=== PATIENT | female | born 1935 | race Caucasian/White ===

== ENCOUNTER 2017-12-17 09:16 | Outpatient (CLI) | payer MEDICARE, OTHER ==
[2017-12-17 10:19] LABS: Anion Gap 15 mmol/L (10-20); BUN (Urea Nitrogen) 11 mg/dL (9.8-20.1); Calc. Creatinine Clearance 0 mL/min (70-130); Calcium 9.8 mg/dL (7.8-10.44); Carbon Dioxide 22 mmol/L (23-31); Cardiac Risk 2.3 (Less than 4.5); Chloride 109 mmol/L (98-107); Cholesterol 158 mg/dl (< 200 Desired); Estimated GFR-MDRD 76; Glucose 96 mg/dL (83-110); HDL Cholesterol 69 mg/dL (>60 Neg Risk); LDL Cholesterol, Calculated 74 mg/dL; Potassium 3.3 mmol/L (3.5-5.1); Sodium 143 mmol/L (136-145); Triglycerides 73 mg/dL (Less than 150)
[2017-12-17 10:31] LABS: Hemoglobin 13.5 g/dL (12.0-16.0); Lymphocytes 15 % (21-51); MDiff Complete? YES; Mean Corpuscular HGB CONC 33.4 g/dL (32.0-36.0); Mean Corpuscular Volume 101.8 fL (78.0-98.0); Mean Platelet Volume 5.8 fL (7.4-10.4); Monocytes 10 % (0-10); Neutrophil 54 % (42-75); PLT Morphology Comment Appears Adequate; Platelet Count 282 thou/uL (130-400); RBC Distribution Width 13.8 % (11.5-14.5); RBC Morphology Normal; Reactive Lymphocytes 21 % (0-10); Red Blood Cell (RBC) Count 3.95 mill/uL (4.20-5.40); White Blood Cell (WBC) Count 6.8 thou/uL (4.8-10.8)
== END 2017-12-17 09:17 | disposition home or self-care (01) ==
LOC: MADLAB 09:16
PROVIDERS: ATTEND Nurse Practitioner Family
DX: I48.2 Chronic atrial fibrillation (principal); I10 Essential (primary) hypertension
CPT/HCPCS: 36415; 80048; 80061; 85025

== ENCOUNTER 2018-01-18 14:34 | Emergency (ER) | payer MEDICARE, OTHER ==
--- NOTE | 2018-01-18 15:29 | RAD ---
RIGHT FOOT 3 VIEWS: HISTORY: Right foot injury. FINDINGS: Lisfranc joint alignment is anatomic. Plantar arch is maintained. Scattered mild osteophytosis. Mi ld hallux valgus and bunion deformity. On the oblique view, there is some irregularity of the medial malleolus and soft tissue swelling abou t the ankle. Metallic density overlies the lateral soft tissues of the ankle on 1 view. IMPRESSION: 1. Mild degenerative changes. 2. Hallux valgus with bunion deformity. 3. Abnormalities of the ankle are partially visualized and better detailed on dedicated radiograph o f the ankle that is pending. POS: [facility]
--- NOTE | 2018-01-18 15:34 | RAD ---
RIGHT ANKLE 3 VIEWS: HISTORY: Right ankle injury. FINDINGS: Nondisplaced oblique fracture extends through the base of the medial malleolus with overlying soft ti ssue swelling. Talar dome is intact. Slight widening of the medial ankle mortise. There is 0.2 cm posterior displacement of the distal fr agment of an oblique distal fibula fracture at the level of the ankle mortise. Overlying soft tissue swelling with a 0.6 cm oval well-corticated ossification. Fluid distention of the joint capsule indicates hemarthrosis. IMPRESSION: 1. Bimalleolar fracture right ankle with mild lateral subluxation of the talus. 2. Chronic-appearing oval ossification within the lateral ankle soft tissue swelling, possibly relat ed to an old injury. POS: [facility]
[2018-01-18] MEDS ORDERED: Ondansetron ODT 4 MG TAB ONE (15:35)
[2018-01-18] MEDS ORDERED: HYDROcodone/Acetaminophen 10/325 mg Tablet ONE (15:35)
--- NOTE | 2018-01-18 15:35 | RAD ---
RADIOGRAPH RIGHT KNEE 4 VIEWS: 01/18/18 HISTORY: 82-year-old female status post acute traumatic injury to the right knee. FINDINGS: There is diffuse osteopenia. No displaced fracture is identified. Moderate sized osteophytes at media l compartment with little or no joint space narrowing. Small osteophytes at patellofemoral compartmen t. Lateral compartment appears normal. Diffuse soft tissue edema. IMPRESSION: 1. No acute fracture identified. 2. Diffuse osteopenia. 3. Soft tissue edema. 4. 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 POS: [facility]
== END 2018-01-18 16:20 | disposition home or self-care (01) ==
LOC: MADERS 14:34
DX: S82.844A Nondisplaced bimalleolar fracture of right lower leg, initial encounter for closed fracture (principal); I48.91 Unspecified atrial fibrillation; Z79.899 Other long term (current) drug therapy; Z79.01 Long term (current) use of anticoagulants; W18.30XA Fall on same level, unspecified, initial encounter
CPT/HCPCS: 29515; Q0162

== ENCOUNTER 2018-05-02 19:44 | Inpatient (IN) | payer MEDICARE, OTHER ==
[2018-05-02] MEDS ORDERED: Rivaroxaban 10 MG TAB PO SCH (21:30)
[2018-05-03] MEDS: Digoxin 0.25 MG TAB PO SCH (09:07)
--- NOTE | 2018-05-03 15:43 | HP ---
PRIMARY CARE PHYSICIAN: Dr. James in [place]. LINE ASSEMBLER AIRCRAFT: Shay Champagne MD GI: Herson Piña MD INFECTIOUS DISEASE: Bret Shaikh MD. REASON FOR ADMISSION: Transferred to [facility] for skilled rehab post hospitalization. HISTORY OF PRESENT ILLNESS: Ms. Vang is an 83-year-old female with multiple chronic medical conditions, recently admitted to [facility] for acute onset of cough and shortness of breath. Per report, the patient was reported to be hypoxic from her primary care physician's clinic. She was then sent to the emergency room for further evaluation. On further examination, the patient was diagnosed with community-acquired pneumonia. The patient had a CT angiogram of the chest showing no evidence of pulmonary embolism. There was some diffuse pericardial fat completely surrounding the heart and some nonspecific parenchymal changes and multiple adrenal nodules. She also had an echocardiogram during this hospitalization with ejection fraction of 65%, probable diastolic dysfunction. The patient was treated on broad-spectrum IV antibiotics with marked improvement of the respiratory symptoms. She also received bronchodilators. During her admission, the patient also reported a significant abdominal pain and was noted to have an ileus versus a partial small -bowel obstruction. Her CT of the abdomen and pelvis showed distended loops of bowel in the jejunum and colon and bilateral adrenal nodules. The patient was made n.p.o.and placed on bowel rest. Abdominal symptoms resolved over the course of the next couple of days. During this hospitalization, railroad engineer was consulted with regard to her permanent atrial fibrillation and her medications were slightly adjusted. ID was likewise consulted during this hospitalization secondary to persistent leukocytosis. 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 Dr. Shaikh recommended to get a 24-hour urine for free cortisol, which can be done in [facility]. We will order this in [facility] in meantime, and will follow up and we will coordinate this with Dr. Shaikh. When admitted, the patient reports today that she feels much better now. There is no significant recurrence of shortness of breath or dyspnea on exertion. She denies recurrence of cough nor sputum production. She remains on oxygen and continuous oxygen as her O2 saturation has not stabilized at room air at this point yet. The patient reports that she had never had oxygen at home. The patient also reports that she still feels very generally weak and is agreeable that she will have her therapy in [facility] before going back to the home environment. No other issues reported at this time. PAST MEDICAL HISTORY: Diverticulosis, atrial fibrillation, chronic partial small bowel obstruction, breast cancer of the left side. PAST SURGICAL HISTORY: 1. Hemicolectomy with reanastomosis in 2009. 2. Radical mastectomy on the left. 3. Cholecystectomy. 4. Appendectomy. 5. Hysterectomy. 6. Splenectomy. 7. Colonoscopy. ALLERGIES: NONE. MEDICATIONS: 1. Xarelto 20 mg p.o. daily. 2. Cardizem 120 mg p.o. daily. 3. Losartan 50 mg p.o. daily. FAMILY HISTORY: Mother of car accident at age of 75 and father had a CVA and passed when he was 62. SOCIAL HISTORY: She used to smoke, but quit long time ago. She does not drink nor use illicit drug use. REVIEW OF SYSTEMS: GENERAL: Denies fever, chills. Reports fatigue and general weakness. HEENT: Denies headache, acute visual changes or hearing changes. PULMONARY: As per HPI. CARDIAC: Denies chest pain, palpitation, dyspnea on exertion, pain with breathing, orthopnea. GASTROINTESTINAL: No nausea, vomiting, abdominal pain, constipation, or rectal bleeding. Reports chronic diarrhea, GENITOURINARY: No dysuria, hematuria, frequency or urgency or incontinence. MUSCULOSKELETAL: Denies arthralgia, joint effusion or stiffness or myalgia. NEURO: No focal numbness, focal weakness. PSYCH: Denies anxiety, depression, hallucinations. LABORATORY DATA: Most recent lab/tests, white count of 9.3, hemoglobin 13.6, hematocrit 41.8, and platelets 333. Chemistry showed 138 sodium, potassium 3.4 , CO2 18, BUN 12, creatinine 0.81, glucose 151, lactic acid 3.2, troponin 0.092 , albumin 3.3, and lipase 67. Labs prior to discharge on 05/02/2018, WBC 26.5, hemoglobin 8.7, hematocrit 26.8 , platelets 335, neutrophils 85, bands 4. Chemistry, sodium 139, potassium 3.4 (3.1on 04/28/2018), BUN 11, creatinine 0.58, estimated GFR greater than 90, glucose 89, magnesium 1.6, phosphorus 2.4, calcium 8.4. Digoxin level 1.35 on 04/30/2018. PHYSICAL EXAMINATION: VITAL SIGNS: Blood pressure 111/54, temperature 97.6, pulse 83, respiration 18 , O2 sats 91% on 2 L per nasal cannula. Weight 153 pounds and 5 ounces, height 5 feet 7 inches. GENERAL: The patient is awake, alert, oriented x3,generally weak looking , frail elderly; comfortable on exam, not in distress. No family present at bedside. HEENT: Normocephalic, atraumatic. PERRL. Intact EOM. Anicteric sclerae. Oral mucosa is moist. NECK: Supple. No LAD. No JVD. CHEST: Normal excursion. Nonlabored breathing. LUNGS:Clear to auscultation bilaterally. No rales. No crackles. No rhonchi. \CARDIAC: rate controlled, irregular, Normal S1 and S2. GASTROINTESTINAL: Soft, nondistended. Normoactive bowel sounds. Nontender. No rebound. No guarding. Negative CVA tenderness bilaterally. EXTREMITIES: No edema. No cyanosis. PSYCH: Calm, pleasant, appropriate demeanor and affect. NEUROLOGIC: Nonfocal. Gait unsteady.Wears RLE boot ASSESSMENT AND PLAN: 1. Deconditioning/generalized weakness. 2. Community-acquired pneumonia, treated. 3. Ileus, resolved. 4. Chronic atrial fibrillation.On Xarelto. Rate controlled. 5. Acute respiratory failure with hypoxemia secondary to deconditioning/ generalized weakness, oxygen requiring. 6. 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 Due for 24-hour urine, free cortisol. 7. Hypertension. 8. Long-term use of anticoagulant. The patient is admitted to [facility] for purposes of skilled rehab. We will refer to PT and OT. We will continue current medications as modified per list. We will order 24-hour urine for free cortisol. We will try to wean off the patient from the oxygen prior to discharge. VTE PROPHYLAXIS: The patient is already on anticoagulant. Further recommendations depending on the test results. ESTIMATED LENGTH OF STAY: 2 to 3 weeks. CODE STATUS: The patient reports DO NOT RESUSCITATE Job ID: [id number] [facility]
[2018-05-03] MEDS: Rivaroxaban 10 MG TAB PO SCH ×5 (17:04→17:14)
[2018-05-04] MEDS: Digoxin 0.25 MG TAB PO SCH (09:13)
[2018-05-04] MEDS: Rivaroxaban 10 MG TAB PO SCH (17:39)
[2018-05-04] MEDS ORDERED: Rivaroxaban 10 MG TAB ONE (17:41)
[2018-05-04] MEDS ORDERED: Lantiseptic Ointment 130 GM JAR TOP PRN (19:40)
[2018-05-05] MEDS: Digoxin 0.25 MG TAB PO SCH (09:02)
[2018-05-05] MEDS: Rivaroxaban 10 MG TAB PO SCH (17:27)
[2018-05-06] MEDS: Digoxin 0.25 MG TAB PO SCH (09:04)
[2018-05-06] MEDS: Rivaroxaban 10 MG TAB PO SCH (16:51)
[2018-05-07] MEDS: Digoxin 0.25 MG TAB PO SCH (08:34)
[2018-05-07] MEDS: Rivaroxaban 10 MG TAB PO SCH (17:06)
[2018-05-08] MEDS: Digoxin 0.25 MG TAB PO SCH (08:28)
[2018-05-08] MEDS: Rivaroxaban 10 MG TAB PO SCH (17:16)
[2018-05-09] MEDS: Digoxin 0.25 MG TAB PO SCH (09:27)
[2018-05-09] MEDS: Ondansetron ODT 4 MG TAB PO PRN (13:12)
[2018-05-09] MEDS: Rivaroxaban 10 MG TAB PO SCH (17:18)
[2018-05-10] MEDS: Digoxin 0.25 MG TAB PO SCH (09:00)
[2018-05-10 13:17] LABS: Cortisol,Free Ur 65 ug/L (Undefined); Cortisol,Ur Free 24 Hr 26 ug/24 hr (0-50)
[2018-05-10] MEDS: Rivaroxaban 10 MG TAB PO SCH (17:33)
[2018-05-11] MEDS: Digoxin 0.25 MG TAB PO SCH (08:41)
[2018-05-11] MEDS: Rivaroxaban 10 MG TAB PO SCH (17:22)
[2018-05-11] MEDS: Acetaminophen 325 MG TAB PO PRN (21:16)
[2018-05-12] MEDS: Digoxin 0.25 MG TAB PO SCH (09:07)
[2018-05-12] MEDS: Rivaroxaban 10 MG TAB PO SCH (17:08)
[2018-05-12] MEDS: Acetaminophen 325 MG TAB PO PRN (21:01)
[2018-05-13 05:34] LABS: ALT (SGPT) 15 U/L (8-55); AST (SGOT) 14 U/L (5-34); Albumin 2.7 g/dL (3.4-4.8); Alkaline Phosphatase 70 U/L (40-150); Anion Gap 11 mmol/L (10-20); BUN (Urea Nitrogen) 5 mg/dL (9.8-20.1); Bilirubin, Total 1.2 mg/dL (0.2-1.2); Calc. Creatinine Clearance 90 mL/min (70-130); Calcium 8.9 mg/dL (7.8-10.44); Carbon Dioxide 27 mmol/L (23-31); Chloride 107 mmol/L (98-107); Estimated GFR-MDRD Greater than 90; Globulin 2.6 g/dL (2.4-3.5); Glucose 88 mg/dL (83-110); Potassium 3.5 mmol/L (3.5-5.1); Protein, Total 5.3 g/dL (6.0-8.3); Sodium 141 mmol/L (136-145)
[2018-05-13 05:54] LABS: #Basophils 0.1 thou/uL (0.0-0.2); #Eosinphils 0.3 thou/uL (0.0-0.7); #Lymphocytes 1.8 thou/uL (1.20-3.40); #Monocytes 0.9 thou/uL (0.11-0.59); #Neutrophils 3.5 thou/uL (1.40-6.50); %Basophils 1.1 % (0.0-1.0); %Lymphocytes 27.7 % (21.0-51.0); %Monocytes 13.7 % (0.0-10.0); %Neutrophils 53.5 % (42.0-75.0); Anisocytosis SLIGHT = 6-15 cells (100X) (0-5/hpf); Hemoglobin 9.7 g/dL (12.0-16.0); Hypochromia MODERATE=16-30 cells (100X) (0-5/hpf); MDiff Complete? YES; Macrocytosis MODERATE=16-30 cells (100X) (0-5/hpf); Mean Corpuscular HGB CONC 32.2 g/dL (32.0-36.0); Mean Corpuscular Hemoglobin 35.9 pg (27.0-31.0); Mean Corpuscular Volume 111.4 fL (78.0-98.0); Mean Platelet Volume 6.4 fL (7.4-10.4); Platelet Count 229 thou/uL (130-400); Platelet Morphology Comment Appears Adequate; Poikilocytosis SLIGHT = 6-15 cells (100X) (0-5/hpf); RBC Morphology Abnormaql; White Blood Cell (WBC) Count 6.6 thou/uL (4.8-10.8)
[2018-05-13] MEDS: Digoxin 0.25 MG TAB PO SCH (08:38)
[2018-05-13] MEDS: Rivaroxaban 10 MG TAB PO SCH (17:24)
[2018-05-13] MEDS: Loperamide HCl 2 MG CAP PO SCH (20:40)
[2018-05-14] MEDS: Loperamide HCl 2 MG CAP PO SCH ×2 (08:21→20:32)
[2018-05-14] MEDS: Digoxin 0.25 MG TAB PO SCH (08:21)
[2018-05-14] MEDS: Rivaroxaban 10 MG TAB PO SCH (16:49)
[2018-05-14] MEDS: Ondansetron ODT 4 MG TAB PO PRN (16:55)
[2018-05-14] MEDS: Acetaminophen 325 MG TAB PO PRN (21:23)
[2018-05-15] MEDS: Acetaminophen 325 MG TAB PO PRN ×2 (03:07→21:11)
[2018-05-15] MEDS: Loperamide HCl 2 MG CAP PO SCH ×2 (08:24→21:08)
[2018-05-15] MEDS: Digoxin 0.25 MG TAB PO SCH (08:25)
[2018-05-15] MEDS: Rivaroxaban 10 MG TAB PO SCH (16:33)
[2018-05-16] MEDS: Digoxin 0.25 MG TAB PO SCH (09:02)
[2018-05-16] MEDS: Loperamide HCl 2 MG CAP PO SCH ×2 (09:02→20:13)
[2018-05-16] MEDS: Rivaroxaban 10 MG TAB PO SCH (17:21)
[2018-05-16] MEDS: Acetaminophen 325 MG TAB PO PRN (20:12)
[2018-05-17] MEDS: Acetaminophen 325 MG TAB PO PRN ×2 (02:47→21:20)
[2018-05-17] MEDS: Digoxin 0.25 MG TAB PO SCH (08:33)
[2018-05-17] MEDS: Loperamide HCl 2 MG CAP PO SCH (08:33)
[2018-05-17] MEDS: Ondansetron ODT 4 MG TAB PO PRN (16:45)
[2018-05-17] MEDS: Rivaroxaban 10 MG TAB PO SCH (17:18)
[2018-05-17] MEDS: Loperamide HCl 2 MG CAP PO PRN (21:20)
[2018-05-18] MEDS: Acetaminophen 325 MG TAB PO PRN ×3 (03:22→21:41)
[2018-05-18] MEDS: Digoxin 0.25 MG TAB PO SCH (07:58)
[2018-05-18 15:23] VITALS: BMI 22.6
[2018-05-18] MEDS: Rivaroxaban 10 MG TAB PO SCH (16:48)
[2018-05-19] MEDS: Acetaminophen 325 MG TAB PO PRN ×2 (04:37→20:58)
[2018-05-19] MEDS: Digoxin 0.25 MG TAB PO SCH (08:00)
[2018-05-19] MEDS: Rivaroxaban 10 MG TAB PO SCH (16:20)
[2018-05-19] MEDS: Ondansetron ODT 4 MG TAB PO PRN (17:14)
[2018-05-20] MEDS: Digoxin 0.25 MG TAB PO SCH (08:30)
--- NOTE | 2018-05-20 11:49 | RAD ---
RIGHT ANKLE 3 VIEWS: DATE: 05/20/2018. COMPARISON: 01/18/2018. HISTORY: Reevaluate fractures. FINDINGS: The obliquely oriented fracture of the medial malleolus is again seen. The fracture line is still we ll defined with no significant interval healing or callus formation. In addition, there is a transve rse fracture throughout the distal fibula/lateral malleolus. Fracture line is still well seen as wel l. No new fracture. There is no evidence for dislocation. Talar dome appears intact. IMPRESSION: Fracture deformities of the lateral and medial malleoli as detailed above. POS: [facility]
--- NOTE | 2018-05-20 11:55 | RAD ---
PORTABLE UPRIGHT FRONTAL CHEST RADIOGRAPH: Date: 05/20/18 COMPARISON: 05/02/18. HISTORY: Cough and pneumonia. FINDINGS: Evaluation is limited on portable radiograph chest. There is abnormal density in the inferior half of the right hemithorax, which is in part associated with obscuration by an enlarged cardiac silhouette . Air space disease in the right lung base cannot be excluded. There is also hazy increased density i n the left base with blunting of the left costophrenic angle, similar when compared to prior imaging. IMPRESSION: Increased density noted in both lung bases, not well assessed on this exam. There has been no signifi cant interval change when compared to 05/02/18 exam. The most sensitive way of reevaluating previous abnormality within the lung parenchyma would be a repeat chest CT. POS: [facility]
--- NOTE | 2018-05-20 12:17 | RAD ---
RIGHT FOOT THREE VIEWS: History: Follow up of foot injury. FINDINGS: The bones are diffusely demineralized. Some arthritic change of the first metatarsal phalangeal joint . There is mild hallux valgus deformity. There are no signs of fracture. IMPRESSION: Diffuse bony demineralization and arthritic changes of the foot. POS: [facility]
[2018-05-20] MEDS: Rivaroxaban 10 MG TAB PO SCH (17:09)
[2018-05-20] MEDS: Acetaminophen 325 MG TAB PO PRN (21:05)
[2018-05-21] MEDS: Digoxin 0.25 MG TAB PO SCH (08:12)
[2018-05-21] MEDS: Rivaroxaban 10 MG TAB PO SCH (17:05)
[2018-05-21] MEDS: Acetaminophen 325 MG TAB PO PRN (17:47)
[2018-05-22] MEDS: Acetaminophen 325 MG TAB PO PRN ×3 (00:36→22:40)
[2018-05-22] MEDS: Proctozone-HC 2.5% Cream 30 GM TUBE TOP PRN ×2 (07:27→22:42)
[2018-05-22] MEDS: Digoxin 0.25 MG TAB PO SCH (08:29)
[2018-05-22] MEDS: Loperamide HCl 2 MG CAP PO PRN ×3 (11:54→22:40)
[2018-05-22] MEDS: Rivaroxaban 10 MG TAB PO SCH (17:23)
[2018-05-23] MEDS: Loperamide HCl 2 MG CAP PO PRN ×3 (08:38→21:11)
[2018-05-23] MEDS: Digoxin 0.25 MG TAB PO SCH (08:38)
[2018-05-23] MEDS: Ondansetron ODT 4 MG TAB PO PRN (08:41)
[2018-05-23] MEDS: Rivaroxaban 10 MG TAB PO SCH (17:29)
[2018-05-23] MEDS: Acetaminophen 325 MG TAB PO PRN (21:11)
[2018-05-24] MEDS: Acetaminophen 325 MG TAB PO PRN (05:01)
[2018-05-24 08:02] VITALS: BP 133/61; TEMP 98
[2018-05-24] MEDS: Digoxin 0.25 MG TAB PO SCH (09:19)
[2018-05-24] MEDS ORDERED: Cholestyramine/Aspartame 4 gm Packet PO SCH (22:00)
== END 2018-05-24 16:43 | DRG 194 ==
LOC: MADMS 19:44
PROVIDERS: ADMIT Family Medicine; ATTEND Family Medicine
DX: J18.9 Pneumonia, unspecified organism (principal); K56.7 Ileus, unspecified; J96.11 Chronic respiratory failure with hypoxia; I48.2 Chronic atrial fibrillation; Z66 Do not resuscitate; R53.81 Other malaise; R53.1 Weakness; I10 Essential (primary) hypertension; Z85.3 Personal history of malignant neoplasm of breast; Z79.01 Long term (current) use of anticoagulants; Z90.49 Acquired absence of other specified parts of digestive tract; Z90.710 Acquired absence of both cervix and uterus; Z90.12 Acquired absence of left breast and nipple; Z87.891 Personal history of nicotine dependence
CPT/HCPCS: 36415; 71045; 80053; 82530; 85025; 87324; 87449; Q0162